=== PATIENT | female | born 1950 | race American Indian/Alaskan Native ===

== ENCOUNTER 2018-03-05 06:47 | Day surgery (SDC) | payer OTHER, MEDICARE ==
[2018-02-26 13:22] VITALS: BMI 27.4
[2018-03-05] MEDS ORDERED: Dexamethasone 20 mg / 5 ml Inj ONE (07:58)
[2018-03-05] MEDS ORDERED: Lidocaine 1% Inj (20ml) ONE (07:59)
[2018-03-05] MEDS ORDERED: Bupivacaine 0.5% Inj(30mL) ONE (07:59)
[2018-03-05] MEDS ORDERED: Lidocaine PF 2% (5 ml) Inj (For Cardiac Arrhy) ONE (07:59)
[2018-03-05] MEDS ORDERED: Liquid Adhesive TOP ONE (08:00)
[2018-03-05] MEDS ORDERED: Propofol 10 mg/ml Inj (20 ML) ONE (09:16)
[2018-03-05] MEDS ORDERED: Midazolam 2 MG/2 ML VIAL ONE (09:16)
[2018-03-05] MEDS ORDERED: Bupivacaine 0.5% Inj(30mL) IJ ONE (09:30)
[2018-03-05] MEDS ORDERED: ePHEDrine 50 mg/ml Inj ONE (09:49)
[2018-03-05] MEDS ORDERED: MethylPREDNISolone Depo 40 mg/ml Inj ONE (10:14)
[2018-03-05] MEDS ORDERED: Sevoflurane - Inhalation Anesthetic Liq (250 ml) ONE (10:45)
[2018-03-05] MEDS ORDERED: MethylPREDNISolone Depo 40 mg/ml (5 ml) Inj IM ONE ×2 (11:09→11:20)
--- NOTE | 2018-03-05 11:43 | PCM.SURG1 ---
Surgeon's Initial Post Op Note - Surgeon's Notes Surgeon: Dr. Eliot Chanel Belt Repairer: Dr. Rakesh Chanel, Dr. Leticia Brandon, Dr. Lenny Booth Type of Anesthesia: IV Sedation, Local Anesthesia Administered By: Dr. Jara Pre-Operative Diagnosis: Right foot recurrent bunion deformity, 4th digit hammertoe deformity, Neuroma to 3rd intermetatarsal space Operative Findings: Materials: Cartiva Synthetic Cartilage Implant into 1st MTPJ , 2-0 and 3-0 Vicryl, 4-0 Nylon Post-Operative Diagnosis: same Operation Performed: Right foot Wagoner Bunionectomy, implantaion of Cartiva implant to 1st Metatarso phalangeal joint, 4th digit DIPJ arthroplasty, excision of neuroma from 3rd interspace Specimen/Specimens Removed: right foot neuroma Estimated Blood Loss: EBL {In ML}: 2 Blood Products Given: N/A Drains Used: No Drains Post-Op Condition: Good Date of Surgery/Procedure: 03/05/18 Time of Surgery/Procedure: 09:10
[2018-03-05] MEDS ORDERED: Oxycodone/Acetaminophen 5/325 mg Tab PO PRN ×2 (11:45)
[2018-03-05 11:51] VITALS: TEMP 97.4
[2018-03-05] MEDS ORDERED: HYDROmorphone 0.5 mg/0.5 ml ISec IVP PRN (12:03)
--- NOTE | 2018-03-05 12:14 | RAD ---
Date of service: 03/05/2018 PROCEDURE: Right Foot Radiographs. HISTORY: s/p right foot surgery COMPARISON: None. FINDINGS: BONES: An osteotomy has been performed of the 1st MTP joint. There is normal alignment. Screws are seen in the heads of the 2nd and 3rd metatarsals JOINTS: Normal. SOFT TISSUES: Normal. OTHER FINDINGS: None. IMPRESSION: An osteotomy has been performed of the 1st MTP joint. There is normal alignment.
[2018-03-05] MEDS ORDERED: Lactated Ringer's 1,000 ML IV SCH (12:15)
[2018-03-05 12:30] VITALS: BP 135/86; PULSE 79; RESP 20; O2SAT 99
[2018-03-05] MEDS ORDERED: Oxycodone/Acetaminophen 5/325 mg Tab ONE (13:41)
[2018-03-05] MEDS ORDERED: Oxycodone/Acetaminophen 5/325 mg Tab PO ONE (13:41)
--- NOTE | 2018-03-09 16:52 | PCM.OP ---
Operative Report - Operative Report Date of Surgery/Procedure: 03/05/18 Time of Surgery/Procedure: 09:00 Surgeon: Dr. Eliot Chanel Ballet Dancer: Dr. Rakesh Chanel, Dr. Brandon, Dr. Booth Anesthesia/Sedation: IV sedation and Local Pre-Operative Diagnosis: Pre-Operative Diagnoses: 1)Right foot Hallux Limitus. 2)Right foot recurrent painful bunion deformity. 3)Right foot 4th digit hammertoe deformity. 4)Right foot painful neuroma to 3rd intermetatarsal space Post-Operative Diagnosis: same Indication for Surgery: Indications: The patient is a 68 year old female with the above diagnoses. The patient has exhausted conservative treatment at this time and now requests surgical intervention. The patient signed the consent after careful explanation of risks, benefits, complication and alternatives for surgical procedure. No guarantees were given nor implied. 1g of Ancef IV were given to the pt hour prior to the procedure. NPO status was confirmed prior to taking pt to the OR. Operative Findings: Preparation: The patient was brought to the operating room and placed on the operating room table in supine position. A well-padded pneumatic ankle tourniquet was placed to the patient's Right ankle in a supramalleolar position. After induction of IV sedation, the patient received a total of 30 mL of 1:1 mix of 0.5% Marcaine plain and 1% Lidocaine plain in local block fashion to the Right foot. Once local anesthesia was achieved, the Right foot was then prepped and draped in usual sterile manner. Esmarch was utilized to exsanguinate the patient's Right foot. Pneumatic ankle tourniquet was then inflated to 250 mmHg and procedure began. Procedure/Operation Description: Name of Procedure: 1)Right foot Wagoner Procedure; partial resection of 1st proximal phalanx base. 2)Right foot 1st MTPJ implantation of Cartiva synthetic cartilage. 3)Right foot 4th digit PIPJ arthroplasty. 4)Right foot excision of neuroma from 3rd intermetatarsal space. Procedure #1: Right foot Wagoner Procedure; partial resection of 1st proximal phalanx base. Attention was directed to the dorsal aspect of Right foot 1st metatarsal where Hallux abducto Valgus deformity was apparent. Utilizing #15 blade, an approximately 6cm linear longitudinal incision was made involving the contour of the deformity. The incision was carried down to the level of the periosteum capsular structures overlying the 1st MTPJ, extending distally to involve shaft of proximal phalanx. Care was taken to retract all vital neurovascular structures. An inverted L type periosteal and capsular incision was then made at the level of the MTPJ. The periosteal and capsular structures were reflected off the head of the 1st metatarsal, as well as from the shaft of proximal phalanx. Next, utilizing a sagittal saw, the base of proximal phalanx was resected and passed from the operative field. The surgical site was irrigated with copious amount of sterile normal saline. PROCEDURE #2: Right foot 1st MTPJ implantation of Cartiva synthetic cartilage. Next, attention was directed to the head of 1st metatarsal. The medial and dorsal eminence of the 1st metatarsal head was noted to be grossly hypertrophied in nature. With the use of sagittal saw the dorsal and medial hypertrophic bone was resected. The wound was irrigated with copious mount of sterile saline. Utilizing the drill bit from Cartiva set, a cylindrical hole for implantation of Cartiva was made to the head of the 1st metatarsal. At this time, the surgical site was irrigated with copious amount of sterile normal saline. Next, Cartiva synthetic implant was loaded into the introducer from the set and was carefully aimed to the hole made in 1st metatarsal head. Next, the Cartiva implant was gently pushed out of the introducer into the head of the 1st metatarsal. Excellent placement of the Cartiva implant was visually confirmed with approximately 2mm protrusion of the implant from the head of metatarsal. Next, Medial capsulorrhaphy was performed to the 1st MTPJ, with partial resection of medial capsule in tear-drop shape. The capsule was repaired with #2 -0 Vicryl. Excellent orientation and position of the right foot hallux was confirmed under direct visualization. . PROCEDURE #3: Right foot 4th digit PIPJ arthroplasty. Attention was directed to the dorsal aspect of the 4th digit right foot where a prominent callus formation was noted dorsal to Proximal inter-phalangeal joint. An elliptical longitudinal incision measuring 1.5cm x 0.4cm was made around the hypertrophied callus overlying the distal interphalangeal joint of the 4th digit. This elliptical skin flap was excised and removed from the operative field. The incision was deepened through subcutaneous tissue with care being taken to identify and retract all vital neurovascular structures. All bleeders were cauterized and ligated as necessary. At this time, a transverse tenotomy and capsulotomy was performed to the proximal interphalangeal joint of the 4th digit, Right foot. The head of the middle phalanx was then freed of its capsular and ligamentous attachments. Next utilizing an oscillating saw, the head of. the proximal phalanx was resected and passed from the operative site. The wound was then flushed with copious amount of sterile normal saline. Next, the extensor tendon was reapproximated with #3-0 vicryl. Correction of the deformity was assessed at this time and noted to be excellent. PROCEDURE #4: Right foot excision of neuroma from 3rd intermetatarsal space. Attention was brought to the dorsal aspect of 3rd inter metatarsal space. Utilizing a #15 blade, approximately 3cm linear longitudinal incision was made overlying the 3rd intermetatarsal space. Dissection was carried down deeper through the subcutaneous tissue with sharp and blunt dissection. Care was taken to retract all vital neurovascular structures and all bleeders were cauterized and ligated as necessary. At this time, deep transverse metatarsal ligament was noted, and using tenotomy scissors the ligament was transected to reveal the underlying nerve. At this time, the nerve was visualized in the operative field measuring approximately 2cm x 0.7cm x 0.7cm in volume. The nerve was excised and passed from the operative field to be sent for pathology. The surgical site was irrigated with copious amount of sterile normal saline. All surgical sites were then flushed with copious amounts of sterile normal saline. The periosteal and capsular structures were approximated and coapted utilizing #2-0, #3-0 Vicryl, subcuticular tissues reapproximated and coapted utilizing #3-0 Vicryl, the skin was reapproximated and coapted utilizing #4-0 Monocryl in running subcuticular stitch. Right foot was then dressed with Betadine soaked adaptic, Kerlix and NEL bandage. The attending was present during the entire case. Estimated Blood Loss: Less than 5 mL Complications: None Discharge & Condition: Postoperative Condition: The patient tolerated the anesthesia and procedure well and was escorted to the recovery room with vital signs stable and neurovascular status intact to the Right foot. This patient will follow up with Dr. Chanel.
== END 2018-03-05 15:25 | disposition home or self-care (01) ==
LOC: SDS 06:47
PROVIDERS: ATTEND Podiatrist Foot & Ankle Surgery
DX: M20.11 Hallux valgus (acquired), right foot (principal); M20.41 Other hammer toe(s) (acquired), right foot; M20.5X1 Other deformities of toe(s) (acquired), right foot; M21.611 Bunion of right foot; G57.61 Lesion of plantar nerve, right lower limb; I10 Essential (primary) hypertension; K21.9 Gastro-esophageal reflux disease without esophagitis; J45.909 Unspecified asthma, uncomplicated; F17.200 Nicotine dependence, unspecified, uncomplicated
CPT/HCPCS: 28292; 28285; 28080; 28270; 73630; 88305; J1030; J1170; J2001; J2250; J2704; J3010; J7120 ×2; L8699